=== PATIENT | male | born 1975 | race Caucasian/White ===

== ENCOUNTER 2023-05-22 06:46 | Emergency (ER) | payer MEDICAID ==
[~2023-05-22] VITALS: Ht 170.2 cm; Wt 84.6 kg
[2023-05-22 07:06] VITALS: O2SAT 100
[2023-05-22] MEDS ORDERED: ACYC200C31 MT (08:33)
[2023-05-22] MEDS ORDERED: P50 MT (08:33)
[2023-05-22 09:37] VITALS: BP 168/98; PULSE 93; RESP 15; TEMP 98
== END 2023-05-22 09:39 | disposition home or self-care (01) ==
LOC: ER 06:46
DX: R29.810 Facial weakness (principal)
CPT/HCPCS: 99283

== ENCOUNTER 2025-03-09 10:22 | Inpatient (IN) | payer MEDICAID ==
[~2025-03-09] VITALS: Ht 162.6 cm; Wt 73.9 kg
[~2025-03-09 10:22] MED LIST: ACYC-58 MT; P50 MT
[2025-03-09 11:07] VITALS: O2SAT 97
[2025-03-09] MEDS ORDERED: KETOROLAC 30MG/ML VIAL IM ONE (11:30)
[2025-03-09] MEDS ORDERED: LIDOCAINE 5% PATCH TOP SCH (11:30)
[2025-03-09 11:51] LABS: HEMATOCRIT. 38.8 % (42.0-52.0); HEMOGLOBIN. 13.0 g/dL (14.0-18.0); MEAN PLATELET VOLUME 8.3 fl (7.4-10.4); PLATELET 354 x1000/uL (130-400); RED BLOOD CELL COUNT 4.33 mill/uL (4.7-6.1); RED CELL DISTRIBUTION WIDTH 13.1 % (11.6-14.6)
[2025-03-09 12:03] LABS: CREATININE 0.8 mg/dL (0.6-1.3)
[2025-03-09 12:04] LABS: UREA NITROGEN BLOOD 7 mg/dL (9-23)
[2025-03-09 12:05] LABS: ASPARTATE AMINOTRANSFERASE 36 IU/L (<34)
[2025-03-09 12:06] LABS: BILIRUBIN DIRECT 0.2 mg/dL (<=3.0); BILIRUBIN TOTAL 0.4 mg/dL (0.1-1.0); PROTEIN TOTAL 8.6 g/dL (6.0-8.3)
[2025-03-09 12:56] LABS: TROPONIN I HIGH SENSITIVITY < 4 ng/L (3.0-53)
[2025-03-09] MEDS: SODIUM CHLORIDE 0.9% 1,000 ML IV ONE (13:07)
[2025-03-09 13:15] LABS: CLARITY URINE CLEAR (CLEAR); COLOR URINE YELLOW (YELLOW); GLUCOSE URINE 3+ (NEGATIVE); KETONES URINE NEGATIVE (NEGATIVE); LEUKOCYTE ESTERASE URINE 1+ (NEGATIVE); NITRITE URINE NEGATIVE (NEGATIVE); OCCULT BLOOD URINE 3+ (NEGATIVE); PH URINE 6.0 (4.5-8.0); PROTEIN URINE TRACE (NEGATIVE); SPECIFIC GRAVITY URINE 1.029 (1.005-1.030); UROBILINOGEN URINE 0.2 E.U./dL (0.2-1.0)
[2025-03-09 13:23] LABS: *AMPHETAMINES SCREEN URINE NEGATIVE (NEGATIVE)
[2025-03-09 13:24] LABS: *BARBITURATES SCREEN URINE NEGATIVE (NEGATIVE); *BENZODIAZEPINES SCREEN URINE NEGATIVE (NEGATIVE); *COCAINE SCREEN URINE NEGATIVE (NEGATIVE); CANNABINOID URINE SCREEN NEGATIVE (NEGATIVE); ECSTASY MDMA SCREEN URINE NEGATIVE (NEGATIVE); METHADONE URINE SCREEN NEGATIVE (NEGATIVE); OPIATES URINE SCREEN NEGATIVE (NEGATIVE); PHENCYCLIDINE URINE SCREEN NEGATIVE (NEGATIVE)
[2025-03-09 14:03] LABS: MUCUS URINE TRACE /lpf (NONE/TRACE)
[2025-03-09] MEDS: CEFTRIAXONE 2GM/50ML 50 ML IV ONE (14:03)
[2025-03-09 14:04] LABS: SQUAMOUS EPITHELIAL CELL URINE RARE /lpf (RARE/1+)
[2025-03-09] MEDS: SODIUM CHLORIDE 0.9% (SEPSIS BOLUS) IV ONE (14:04)
[2025-03-09 14:05] LABS: BACTERIA URINE TRACE; RBC URINE 50-100 /hpf (0-2); WBC URINE TNTC /hpf (0-2)
[2025-03-09] MEDS: KETOROLAC 30MG/ML VIAL IM NR (14:10)
[2025-03-09] MEDS ORDERED: INSULIN REGULAR (HUMULIN R) 1000UNITS/10ML VIAL IV NR (14:30)
[2025-03-09] MEDS ORDERED: GUAIFENESIN 200MG/10ML SUGAR FREE UDC PO PRN (15:00)
[2025-03-09] MEDS ORDERED: ONDANSETRON HCL 4MG/2ML INJ IV PRN (15:00)
[2025-03-09] MEDS ORDERED: IPRATROPIUM/ALBUTEROL 0.5-3(2.5)MG/3ML NEB HHN PRN (15:00)
[2025-03-09] MEDS ORDERED: CLONIDINE 0.1MG TABLET PO PRN (15:00)
[2025-03-09] MEDS ORDERED: DEXTROSE 50% WATER 50ML SYRINGE IV PRN (15:30)
[2025-03-09 16:00] VITALS: BP 145/88; PULSE 102; RESP 17; TEMP 36.9; O2SAT 97
[2025-03-09] MEDS: BLOOD SUGAR DIAGNOSTIC STRIP TEST SCH (16:33)
[2025-03-09] MEDS: LOSARTAN 25 MG TABLET PO SCH (16:53)
[2025-03-09] MEDS: INSULIN LISPRO 100 UNITS/ML SUBCUT SCH ×2 (16:54→16:55)
[2025-03-09 17:49] LABS: CREATININE 0.6 mg/dL (0.6-1.3); INR 1.1; UREA NITROGEN BLOOD 6 mg/dL (9-23)
[2025-03-09 17:50] LABS: TROPONIN I HIGH SENSITIVITY < 4 ng/L (3.0-53)
[2025-03-09 17:51] LABS: ASPARTATE AMINOTRANSFERASE 32 IU/L (<34); BILIRUBIN DIRECT 0.2 mg/dL (<=3.0); BILIRUBIN TOTAL 0.3 mg/dL (0.1-1.0); PROTEIN TOTAL 8.4 g/dL (6.0-8.3)
[2025-03-09 17:56] VITALS: BP 145/88; PULSE 102; RESP 17; TEMP 36.974
[2025-03-09] MEDS: ACETAMINOPHEN 325MG TABLET PO PRN (18:33)
[2025-03-09 19:30] LABS: BAND% 1.0 % (1.0-6.0); EOSINOPHILS % MANUAL 1.0 % (0.0-5.0); LYMPHOCYTES % MANUAL 9.0 % (20.0-50.0); MONOCYTES % MANUAL 6.0 % (2.0-8.0); NEUTROPHILS % MANUAL 83.0 % (45.0-75.0); PLATELET ESTIMATE NORMAL
[2025-03-09 20:00] VITALS: BP 136/84; PULSE 117; RESP 18; TEMP 37.9; O2SAT 96
[2025-03-09] MEDS: KETOROLAC 30MG/ML VIAL IV PRN (20:21)
[2025-03-09] MEDS: SODIUM CHLORIDE 0.9% 1,000 ML IV SCH (20:23)
[2025-03-09] MEDS: INSULIN GLARGINE 100 UNITS/ML SUBCUT SCH (21:30)
[2025-03-10] VITALS: BP 143/87; PULSE 110; RESP 18; TEMP 36.4; O2SAT 100
[2025-03-10 04:00] VITALS: BP 134/83; PULSE 104; RESP 17; TEMP 36.7; O2SAT 96
[2025-03-10 06:55] LABS: CREATINE KINASE MB FRACTION < 0.5 ng/mL (0.5-3.6)
[2025-03-10 06:59] LABS: BASOPHILS % 0.4 % (0.0-2.0); EOSINOPHILS % 0.2 % (0.0-5.0); HEMATOCRIT. 33.9 % (42.0-52.0); HEMOGLOBIN. 11.4 g/dL (14.0-18.0); LYMPHOCYTES % 7.3 % (20.0-50.0); MEAN PLATELET VOLUME 8.8 fl (7.4-10.4); MONOCYTES % 5.8 % (2.0-8.0); NEUTROPHILS % 86.3 % (40.0-76.0); PLATELET 306 x1000/uL (130-400); RED BLOOD CELL COUNT 3.75 mill/uL (4.7-6.1); RED CELL DISTRIBUTION WIDTH 13.0 % (11.6-14.6)
[2025-03-10 07:02] LABS: CREATININE 0.5 mg/dL (0.6-1.3); UREA NITROGEN BLOOD 6 mg/dL (9-23)
[2025-03-10 08:00] VITALS: BP 142/90; PULSE 114; RESP 18; TEMP 36.8; O2SAT 95
[2025-03-10 12:00] VITALS: BP 137/86; PULSE 104; RESP 18; TEMP 37.6; O2SAT 100
[2025-03-10] MEDS: CEFTRIAXONE 1GM/50ML 50 ML IV SCH (14:22)
[2025-03-10 16:00] VITALS: BP 139/87; PULSE 103; RESP 16; TEMP 36.6; O2SAT 98
[2025-03-10 20:00] VITALS: BP 142/93; PULSE 117; RESP 17; TEMP 38.3; O2SAT 95
[2025-03-10] MEDS: ACETAMINOPHEN 325MG TABLET PO PRN (20:26)
[2025-03-10 21:45] LABS: CREATININE 0.6 mg/dL (0.6-1.3)
[2025-03-10 21:46] LABS: UREA NITROGEN BLOOD 7 mg/dL (9-23)
[2025-03-11] VITALS: BP 127/79; PULSE 102; RESP 18; TEMP 36.6; O2SAT 95
[2025-03-11 04:00] VITALS: BP 134/86; PULSE 89; RESP 18; TEMP 36.2; O2SAT 96
[2025-03-11 08:00] VITALS: BP 136/90; PULSE 107; RESP 18; TEMP 36.4; O2SAT 95
[2025-03-11 11:22] LABS: HEMATOCRIT. 33.4 % (42.0-52.0); HEMOGLOBIN. 11.3 g/dL (14.0-18.0); MEAN PLATELET VOLUME 8.7 fl (7.4-10.4); PLATELET 272 x1000/uL (130-400); RED BLOOD CELL COUNT 3.68 mill/uL (4.7-6.1); RED CELL DISTRIBUTION WIDTH 13.0 % (11.6-14.6)
[2025-03-11 11:37] LABS: CREATININE 0.6 mg/dL (0.6-1.3); UREA NITROGEN BLOOD 10 mg/dL (9-23)
[2025-03-11 12:00] VITALS: BP 120/81; PULSE 97; RESP 18; TEMP 36.4; O2SAT 96
[2025-03-11 12:47] LABS: INR 1.1
[2025-03-11] MEDS: SODIUM CHLORIDE 0.9% 1,000 ML IV SCH (13:32)
[2025-03-11] MEDS: VANCOMYCIN 1.5GM PMX (XELLIA) 300 ML IV NR (13:33)
[2025-03-11 13:38] LABS: HEPATITIS A AB IGM NEGATIVE (Negative); HEPATITIS B CORE AB IGM NEGATIVE (Negative)
[2025-03-11 13:39] LABS: HEPATITIS C AB NON REACTIVE (Neg) (Negative)
[2025-03-11 15:49] LABS: BAND% 13.0 % (1.0-6.0); LYMPHOCYTES % MANUAL 4.0 % (20.0-50.0); MONOCYTES % MANUAL 10.0 % (2.0-8.0); NEUTROPHILS % MANUAL 73.0 % (45.0-75.0)
[2025-03-11 15:50] LABS: PLATELET ESTIMATE NORMAL
[2025-03-11] MEDS: PIPERACILLIN/TAZO 3.375G/50ML 50 ML IV SCH (15:58)
[2025-03-11 16:00] VITALS: BP 138/87; PULSE 101; RESP 18; TEMP 36.4; O2SAT 95
[2025-03-11 20:00] VITALS: BP 137/87; PULSE 95; RESP 20; TEMP 37.8; O2SAT 98
[2025-03-12] VITALS (15 sets, daily range): BP systolic 124–139; BP diastolic 82–92; PULSE 91–109; RESP 16–18; TEMP 36.9–37.3; O2SAT 95–100
[2025-03-12] MEDS: VANCOMYCIN 1.25GM/250ML 250 ML IV SCH (01:57)
[2025-03-12 06:17] LABS: BASOPHILS % 0.5 % (0.0-2.0); EOSINOPHILS % 0.6 % (0.0-5.0); HEMATOCRIT. 34.8 % (42.0-52.0); HEMOGLOBIN. 11.8 g/dL (14.0-18.0); LYMPHOCYTES % 9.6 % (20.0-50.0); MEAN PLATELET VOLUME 8.6 fl (7.4-10.4); MONOCYTES % 6.5 % (2.0-8.0); NEUTROPHILS % 82.8 % (40.0-76.0); PLATELET 324 x1000/uL (130-400); RED BLOOD CELL COUNT 3.87 mill/uL (4.7-6.1); RED CELL DISTRIBUTION WIDTH 12.7 % (11.6-14.6)
[2025-03-12 06:30] LABS: UREA NITROGEN BLOOD 9 mg/dL (9-23)
[2025-03-12 06:31] LABS: CREATININE 0.6 mg/dL (0.6-1.3)
[2025-03-12 06:33] LABS: ASPARTATE AMINOTRANSFERASE 65 IU/L (<34); BILIRUBIN DIRECT 0.2 mg/dL (<=3.0)
[2025-03-12 06:34] LABS: BILIRUBIN TOTAL 0.5 mg/dL (0.1-1.0); PHOSPHORUS 4.2 mg/dL (2.5-4.9); PROTEIN TOTAL 8.2 g/dL (6.0-8.3)
[2025-03-12] MEDS ORDERED: LIDOCAINE HCL 1% 10 MG/ML 10ML VIAL ONE (10:32)
[2025-03-12] MEDS ORDERED: FENTANYL CITRATE/PF 50MCG/ML 2ML VIAL ONE (10:32)
[2025-03-12] MEDS: FENTANYL CITRATE/PF 50MCG/ML 2ML VIAL IV ONE (10:40)
[2025-03-12 10:50] LABS: BASOPHILS % 0.7 % (0.0-2.0); EOSINOPHILS % 0.3 % (0.0-5.0); HEMATOCRIT. 36.0 % (42.0-52.0); HEMOGLOBIN. 12.2 g/dL (14.0-18.0); LYMPHOCYTES % 9.3 % (20.0-50.0); MEAN PLATELET VOLUME 8.5 fl (7.4-10.4); MONOCYTES % 5.6 % (2.0-8.0); NEUTROPHILS % 84.1 % (40.0-76.0); PLATELET 359 x1000/uL (130-400); RED BLOOD CELL COUNT 4.03 mill/uL (4.7-6.1); RED CELL DISTRIBUTION WIDTH 12.9 % (11.6-14.6)
[2025-03-12 11:08] LABS: CREATININE 0.6 mg/dL (0.6-1.3); TROPONIN I HIGH SENSITIVITY < 4 ng/L (3.0-53); UREA NITROGEN BLOOD 9 mg/dL (9-23)
[2025-03-12] MEDS: INSULIN LISPRO 100 UNITS/ML SUBCUT NR (14:53)
[2025-03-12] MEDS: INSULIN LISPRO 100 UNITS/ML SUBCUT SCH (17:30)
[2025-03-12] MEDS: INSULIN GLARGINE 100 UNITS/ML SUBCUT SCH (22:11)
[2025-03-13] VITALS: BP 119/78; PULSE 91; RESP 18; TEMP 37.2; O2SAT 98
[2025-03-13 04:00] VITALS: BP 122/69; PULSE 97; RESP 18; TEMP 36.7; O2SAT 98
[2025-03-13 07:23] LABS: PLATELET 344 x1000/uL (130-400); RED BLOOD CELL COUNT 4.02 mill/uL (4.7-6.1); RED CELL DISTRIBUTION WIDTH 13.1 % (11.6-14.6)
[2025-03-13 07:30] LABS: CREATININE 0.6 mg/dL (0.6-1.3)
[2025-03-13 07:32] LABS: UREA NITROGEN BLOOD 10 mg/dL (9-23)
[2025-03-13 08:00] VITALS: BP 123/75; PULSE 103; RESP 16; TEMP 36.5; O2SAT 95
[2025-03-13 12:00] VITALS: BP 118/78; PULSE 89; RESP 18; TEMP 36.6; O2SAT 96
[2025-03-13 16:00] VITALS: BP 125/82; PULSE 91; RESP 18; TEMP 36.4; O2SAT 95
[2025-03-13 20:00] VITALS: BP 121/78; PULSE 95; RESP 16; TEMP 36.9; O2SAT 95
[2025-03-14] VITALS: BP 124/72; PULSE 100; RESP 17; TEMP 36.7; O2SAT 93
[2025-03-14 04:00] VITALS: BP 125/84; PULSE 86; RESP 19; TEMP 36.4; O2SAT 96
[2025-03-14 07:47] LABS: CREATININE 0.6 mg/dL (0.6-1.3); UREA NITROGEN BLOOD 8 mg/dL (9-23)
[2025-03-14 07:49] LABS: PHOSPHORUS 3.4 mg/dL (2.5-4.9)
[2025-03-14 07:51] LABS: BASOPHILS % 0.6 % (0.0-2.0); EOSINOPHILS % 0.9 % (0.0-5.0); HEMATOCRIT. 35.4 % (42.0-52.0); HEMOGLOBIN. 12.1 g/dL (14.0-18.0); LYMPHOCYTES % 17.7 % (20.0-50.0); MEAN PLATELET VOLUME 8.7 fl (7.4-10.4); MONOCYTES % 7.7 % (2.0-8.0); NEUTROPHILS % 73.1 % (40.0-76.0); PLATELET 321 x1000/uL (130-400); RED BLOOD CELL COUNT 3.97 mill/uL (4.7-6.1); RED CELL DISTRIBUTION WIDTH 13.0 % (11.6-14.6)
[2025-03-14 08:00] VITALS: BP 121/74; PULSE 96; RESP 18; TEMP 37.2; O2SAT 96
[2025-03-14] MEDS: MAGNESIUM 2 G PREMIX 50 ML IV NR (09:44)
[2025-03-14 18:32] VITALS: BP 127/78; PULSE 99; RESP 16; TEMP 37.1; O2SAT 96
[2025-03-14 20:00] VITALS: BP 118/80; PULSE 98; RESP 18; TEMP 36.1; O2SAT 100
[2025-03-15] VITALS (32 sets, daily range): BP systolic 102–124; BP diastolic 65–87; PULSE 95–115; RESP 8–22; TEMP 35.9–37; O2SAT 94–100
[2025-03-15] MEDS: INSULIN LISPRO 100 UNITS/ML SUBCUT SCH (06:44)
[2025-03-15 08:10] LABS: BASOPHILS % 1.3 % (0.0-2.0); EOSINOPHILS % 1.2 % (0.0-5.0); HEMATOCRIT. 34.9 % (42.0-52.0); HEMOGLOBIN. 11.8 g/dL (14.0-18.0); LYMPHOCYTES % 16.1 % (20.0-50.0); MEAN PLATELET VOLUME 8.6 fl (7.4-10.4); MONOCYTES % 6.7 % (2.0-8.0); NEUTROPHILS % 74.7 % (40.0-76.0); PLATELET 352 x1000/uL (130-400); RED BLOOD CELL COUNT 3.91 mill/uL (4.7-6.1); RED CELL DISTRIBUTION WIDTH 12.9 % (11.6-14.6)
[2025-03-15 08:17] LABS: CREATININE 0.5 mg/dL (0.6-1.3)
[2025-03-15 08:18] LABS: UREA NITROGEN BLOOD 8 mg/dL (9-23)
[2025-03-15] MEDS ORDERED: LIDOCAINE HCL/EPINEPHRINE 1%-EPI 1:100,000 20ML VIAL ONE (12:13)
[2025-03-15] MEDS ORDERED: GENTAMICIN SULF 40MG/ML 2ML VIAL ONE (12:13)
[2025-03-15] MEDS ORDERED: THROMBIN (BOVINE) 5000 UNITS/VIAL TOP ONE (12:13)
[2025-03-15] MEDS ORDERED: PROPOFOL 200MG/20ML VIAL IV ONE (14:30)
[2025-03-15] MEDS ORDERED: FENTANYL CITRATE/PF 50MCG/ML 2ML VIAL ONE (14:30)
[2025-03-15] MEDS ORDERED: CEFAZOLIN SODIUM 1000MG/VIAL ONE (14:30)
[2025-03-15] MEDS ORDERED: SUCCINYLCHOLINE CHLORIDE 200MG/10ML IV ONE (14:30)
[2025-03-15] MEDS: DEXT 5%/LACTATED RINGERS 1,000 ML IV SCH (14:30)
[2025-03-15] MEDS ORDERED: DEXAMETHASONE 4MG/ML 1ML VIAL ONE (14:30)
[2025-03-15] MEDS ORDERED: ONDANSETRON HCL 4MG/2ML INJ ONE (14:30)
[2025-03-15] MEDS ORDERED: MIDAZOLAM HCL 2 MG/2 ML VIAL ONE (14:31)
[2025-03-15] MEDS ORDERED: NALOXONE HCL 0.4MG/ML VIAL IV PRN (14:45)
[2025-03-15] MEDS ORDERED: ROCURONIUM BROMIDE 10MG/ML VIAL 5ML IV ONE ×2 (14:46→14:49)
[2025-03-15] MEDS ORDERED: HYDROMORPHONE HCL/PF 2MG/ML INJ ONE ×2 (14:58→16:18)
[2025-03-15] MEDS ORDERED: HYDRALAZINE 20MG/ML VIAL ONE (16:18)
[2025-03-15] MEDS: NICARDIPINE 100 MG in SODIUM CHLORIDE 0.9% 60 ML IV PRN (17:37)
[2025-03-16] VITALS (35 sets, daily range): BP systolic 105–124; BP diastolic 65–105; PULSE 99–114; RESP 10–26; TEMP 36.7–37.2; O2SAT 96–98
[2025-03-16] MEDS: MORPHINE SULFATE 4 MG/ML INJ (FOR IV/IM USE) IV PRN ×2 (02:56→17:05)
[2025-03-16 05:46] LABS: BASOPHILS % 0.5 % (0.0-2.0); EOSINOPHILS % 0.0 % (0.0-5.0); HEMATOCRIT. 30.6 % (42.0-52.0); HEMOGLOBIN. 10.2 g/dL (14.0-18.0); LYMPHOCYTES % 11.3 % (20.0-50.0); MEAN PLATELET VOLUME 8.9 fl (7.4-10.4); MONOCYTES % 5.9 % (2.0-8.0); NEUTROPHILS % 82.3 % (40.0-76.0); PLATELET 322 x1000/uL (130-400); RED BLOOD CELL COUNT 3.43 mill/uL (4.7-6.1); RED CELL DISTRIBUTION WIDTH 12.8 % (11.6-14.6)
[2025-03-16 05:59] LABS: CREATININE 0.6 mg/dL (0.6-1.3); UREA NITROGEN BLOOD 9 mg/dL (9-23)
[2025-03-16] MEDS ORDERED: HYDROCODONE/ACETAMINOPHEN 5/325MG TABLET PO PRN (13:45)
[2025-03-17] VITALS: BP 118/72; PULSE 105; RESP 24; TEMP 36.7; O2SAT 98
[2025-03-17 04:00] VITALS: BP 126/77; PULSE 92; RESP 22; TEMP 36.7; O2SAT 97
[2025-03-17 06:50] LABS: BASOPHILS % 0.8 % (0.0-2.0); EOSINOPHILS % 0.6 % (0.0-5.0); HEMATOCRIT. 31.9 % (42.0-52.0); HEMOGLOBIN. 10.9 g/dL (14.0-18.0); LYMPHOCYTES % 19.1 % (20.0-50.0); MEAN PLATELET VOLUME 8.7 fl (7.4-10.4); MONOCYTES % 8.2 % (2.0-8.0); NEUTROPHILS % 71.3 % (40.0-76.0); PLATELET 296 x1000/uL (130-400); RED BLOOD CELL COUNT 3.58 mill/uL (4.7-6.1); RED CELL DISTRIBUTION WIDTH 12.9 % (11.6-14.6)
[2025-03-17 07:45] LABS: CREATININE 0.6 mg/dL (0.6-1.3); UREA NITROGEN BLOOD 7 mg/dL (9-23)
[2025-03-17 07:47] LABS: PHOSPHORUS 2.9 mg/dL (2.5-4.9)
[2025-03-17 08:41] VITALS: BP 118/72; PULSE 98; RESP 17; TEMP 36.7; O2SAT 97
[2025-03-17 11:38] VITALS: BP 110/76; PULSE 107; RESP 17; TEMP 36.2; O2SAT 97
[2025-03-17] MEDS: HYDROCODONE/ACETAMINOPHEN 10/325MG TABLET PO PRN (15:17)
[2025-03-17 15:18] VITALS: BP 113/71; PULSE 100; RESP 18; TEMP 36.4; O2SAT 99
[2025-03-17] MEDS: MAGNESIUM 2 G PREMIX 50 ML IV NR (15:18)
[2025-03-17 20:00] VITALS: BP 110/74; PULSE 100; RESP 18; TEMP 36.3; O2SAT 98
[2025-03-17] MEDS: DOCUSATE SODIUM 100MG CAPSULE PO PRN (23:21)
[2025-03-18] VITALS: BP 116/70; PULSE 98; RESP 18; TEMP 36.3; O2SAT 98
[2025-03-18 04:00] VITALS: BP 114/71; PULSE 98; RESP 18; TEMP 36.2; O2SAT 98
[2025-03-18 08:00] VITALS: BP 118/78; PULSE 95; RESP 18; TEMP 36.5; O2SAT 98
[2025-03-18 09:11] LABS: CREATININE 0.6 mg/dL (0.6-1.3)
[2025-03-18] MEDS ORDERED: LIDOCAINE HCL 1% 10 MG/ML 10ML VIAL ONE (09:12)
[2025-03-18 09:13] LABS: UREA NITROGEN BLOOD 6 mg/dL (9-23)
[2025-03-18 09:15] LABS: PHOSPHORUS 3.4 mg/dL (2.5-4.9)
[2025-03-18 09:19] LABS: BASOPHILS % 0.6 % (0.0-2.0); EOSINOPHILS % 0.8 % (0.0-5.0); HEMATOCRIT. 30.9 % (42.0-52.0); HEMOGLOBIN. 10.2 g/dL (14.0-18.0); LYMPHOCYTES % 18.1 % (20.0-50.0); MEAN PLATELET VOLUME 8.7 fl (7.4-10.4); MONOCYTES % 8.7 % (2.0-8.0); NEUTROPHILS % 71.8 % (40.0-76.0); PLATELET 263 x1000/uL (130-400); RED BLOOD CELL COUNT 3.40 mill/uL (4.7-6.1); RED CELL DISTRIBUTION WIDTH 13.0 % (11.6-14.6)
[2025-03-18] MEDS: MAGNESIUM 2 G PREMIX 50 ML IV SCH (09:48)
[2025-03-18] MEDS: MAGNESIUM OXIDE 400MG TABLET PO SCH (09:48)
[2025-03-18] MEDS ORDERED: IOHEXOL-300 100 ML BOTTLE ONE (12:55)
[2025-03-18 16:00] VITALS: BP 115/71; PULSE 90; RESP 20; TEMP 36.6; O2SAT 99
[2025-03-18 20:00] VITALS: BP 127/81; PULSE 108; RESP 20; TEMP 37.3; O2SAT 96
[2025-03-19] VITALS (7 sets, daily range): BP systolic 112–120; BP diastolic 69–80; PULSE 85–222; RESP 18–20; TEMP 36.4–37.8; O2SAT 95–99
[2025-03-19 08:03] LABS: BASOPHILS % 0.7 % (0.0-2.0); EOSINOPHILS % 0.6 % (0.0-5.0); HEMATOCRIT. 31.7 % (42.0-52.0); HEMOGLOBIN. 10.9 g/dL (14.0-18.0); LYMPHOCYTES % 13.6 % (20.0-50.0); MEAN PLATELET VOLUME 8.6 fl (7.4-10.4); MONOCYTES % 8.7 % (2.0-8.0); NEUTROPHILS % 76.4 % (40.0-76.0); PLATELET 301 x1000/uL (130-400); RED BLOOD CELL COUNT 3.56 mill/uL (4.7-6.1); RED CELL DISTRIBUTION WIDTH 12.9 % (11.6-14.6)
[2025-03-19 08:27] LABS: CREATININE 0.5 mg/dL (0.6-1.3); UREA NITROGEN BLOOD 6 mg/dL (9-23)
[2025-03-19 08:29] LABS: PHOSPHORUS 3.4 mg/dL (2.5-4.9)
[2025-03-19] MEDS: MAGNESIUM 2 G PREMIX 50 ML IV SCH (12:02)
[2025-03-19] MEDS: INSULIN GLARGINE 100 UNITS/ML SUBCUT SCH (21:24)
[2025-03-20 06:25] LABS: BASOPHILS % 0.7 % (0.0-2.0); EOSINOPHILS % 1.7 % (0.0-5.0); HEMATOCRIT. 32.6 % (42.0-52.0); HEMOGLOBIN. 10.9 g/dL (14.0-18.0); LYMPHOCYTES % 17.0 % (20.0-50.0); MEAN PLATELET VOLUME 8.7 fl (7.4-10.4); MONOCYTES % 7.0 % (2.0-8.0); NEUTROPHILS % 73.6 % (40.0-76.0); PLATELET 296 x1000/uL (130-400); RED BLOOD CELL COUNT 3.67 mill/uL (4.7-6.1); RED CELL DISTRIBUTION WIDTH 13.0 % (11.6-14.6)
[2025-03-20 06:38] LABS: CREATININE 0.5 mg/dL (0.6-1.3)
[2025-03-20 06:39] LABS: UREA NITROGEN BLOOD 7 mg/dL (9-23)
[2025-03-20 08:00] VITALS: BP 110/75; PULSE 111; RESP 16; TEMP 36.7; O2SAT 94
[2025-03-20 12:00] VITALS: BP 115/70; PULSE 101; RESP 18; TEMP 36.7; O2SAT 95
[2025-03-20 16:00] VITALS: BP 110/70; PULSE 95; RESP 16; TEMP 36.4; O2SAT 98
[2025-03-20 20:00] VITALS: BP 109/84; PULSE 104; RESP 18; TEMP 36.6; O2SAT 98
[2025-03-21] VITALS: BP 112/84; PULSE 96; RESP 18; TEMP 36.6; O2SAT 98
[2025-03-21 04:00] VITALS: BP 112/72; PULSE 95; RESP 20; TEMP 36.4; O2SAT 100
[2025-03-21 08:00] VITALS: BP 115/75; PULSE 108; RESP 20; TEMP 36.8; O2SAT 97
[2025-03-21 12:00] VITALS: BP 110/77; PULSE 95; RESP 18; TEMP 36.6; O2SAT 95
[2025-03-21 16:00] VITALS: BP 103/65; PULSE 95; RESP 18; TEMP 36.6; O2SAT 97
[2025-03-21 20:19] VITALS: BP 110/66; PULSE 105; RESP 18; TEMP 36.6; O2SAT 95
[2025-03-22] VITALS: BP 108/71; PULSE 107; RESP 18; TEMP 36.4; O2SAT 96
[2025-03-22 04:00] VITALS: BP 112/75; PULSE 107; RESP 20; TEMP 36.4; O2SAT 97
[2025-03-22 08:00] VITALS: BP 112/75; PULSE 103; RESP 20; TEMP 36.4; O2SAT 95
[2025-03-22 12:00] VITALS: BP 108/70; PULSE 103; RESP 18; TEMP 36.4; O2SAT 98
[2025-03-22 16:00] VITALS: BP 110/74; PULSE 90; RESP 18; TEMP 36.6
[2025-03-22] MEDS: HYDROCODONE/ACETAMINOPHEN 10/325MG TABLET PO PRN (18:57)
[2025-03-22 20:00] VITALS: BP 107/76; PULSE 99; RESP 20; TEMP 37.4; O2SAT 98
[2025-03-23] VITALS (7 sets, daily range): BP systolic 108–141; BP diastolic 61–86; PULSE 78–110; RESP 17–19; TEMP 35.9–37; O2SAT 96–100
[2025-03-24] VITALS: BP 112/72; PULSE 100; RESP 20; TEMP 36.8; O2SAT 99
[2025-03-24 04:00] VITALS: BP 101/72; PULSE 92; RESP 18; TEMP 36.7; O2SAT 98
[2025-03-24 06:07] LABS: PLATELET 274 x1000/uL (130-400); RED BLOOD CELL COUNT 3.46 mill/uL (4.7-6.1); RED CELL DISTRIBUTION WIDTH 13.1 % (11.6-14.6)
[2025-03-24 06:11] LABS: CREATININE 0.5 mg/dL (0.6-1.3)
[2025-03-24 06:12] LABS: UREA NITROGEN BLOOD 6 mg/dL (9-23)
[2025-03-24 06:14] LABS: PHOSPHORUS 3.7 mg/dL (2.5-4.9)
[2025-03-24 20:00] VITALS: BP 123/82; PULSE 107; RESP 18; TEMP 37.7; O2SAT 96
[2025-03-25] VITALS: BP 110/71; PULSE 100; RESP 18; TEMP 37.1; O2SAT 96
[2025-03-25 08:00] VITALS: BP 105/72; PULSE 98; RESP 18; TEMP 36.6; O2SAT 99
[2025-03-25 12:00] VITALS: BP 112/73; PULSE 91; RESP 18; TEMP 36.7; O2SAT 98
[2025-03-25 16:00] VITALS: BP 115/70; PULSE 89; RESP 18; O2SAT 98
[2025-03-25 20:00] VITALS: BP 118/73; PULSE 86; RESP 18; TEMP 36.6
[2025-03-26] VITALS: BP 115/73; RESP 18; TEMP 36.2
[2025-03-26 04:00] VITALS: BP 119/76; PULSE 83; RESP 20; TEMP 36.1
[2025-03-26 08:00] VITALS: BP 129/84; PULSE 90; RESP 18; TEMP 36.7
[2025-03-26 12:00] VITALS: BP 127/86; PULSE 88; RESP 18; TEMP 36.6
[2025-03-26 16:00] VITALS: BP 120/85; PULSE 95; RESP 18; TEMP 36.8
[2025-03-26 20:00] VITALS: BP 116/74; PULSE 100; RESP 19; TEMP 36.7
[2025-03-27] VITALS: BP 111/75; PULSE 96; RESP 18; TEMP 36.6
[2025-03-27 04:00] VITALS: BP 114/76; PULSE 93; RESP 19; TEMP 36.5
[2025-03-27 08:00] VITALS: BP 115/79; PULSE 88; RESP 16; TEMP 36.1; O2SAT 97
[2025-03-27 12:00] VITALS: BP 105/65; PULSE 91; RESP 17; TEMP 36.2; O2SAT 97
[2025-03-27 16:00] VITALS: BP 107/64; PULSE 92; RESP 18; TEMP 36.3; O2SAT 98
[2025-03-27 20:00] VITALS: BP 103/60; PULSE 55; RESP 15; TEMP 36.6; O2SAT 98
[2025-03-28] VITALS: BP 104/65; PULSE 94; RESP 16; TEMP 36.3; O2SAT 95
[2025-03-28 04:00] VITALS: BP 135/89; PULSE 104; RESP 16; TEMP 36.9; O2SAT 93
[2025-03-28 08:00] VITALS: BP 119/80; PULSE 103; RESP 18; TEMP 36.5; O2SAT 97
[2025-03-28 12:00] VITALS: BP 118/81; PULSE 95; RESP 18; TEMP 36.5; O2SAT 96
[2025-03-28 16:00] VITALS: BP 113/77; PULSE 97; RESP 16; TEMP 36.6; O2SAT 97
[2025-03-29] VITALS: BP 116/70; PULSE 95; RESP 18; TEMP 37.1; O2SAT 96
[2025-03-29 04:00] VITALS: BP 118/83; PULSE 99; RESP 18; TEMP 36.7; O2SAT 100
[2025-03-29 08:00] VITALS: BP 122/84; PULSE 97; RESP 16; TEMP 36.6; O2SAT 97
[2025-03-29 16:00] VITALS: BP 120/87; PULSE 98; RESP 16; TEMP 36.5; O2SAT 99
[2025-03-29 20:00] VITALS: BP 121/83; PULSE 109; RESP 16; TEMP 36.7; O2SAT 99
[2025-03-30] VITALS (7 sets, daily range): BP systolic 106–130; BP diastolic 63–85; PULSE 91–105; RESP 14–19; TEMP 36.2–37.4; O2SAT 96–98
[2025-03-31 04:00] VITALS: BP 103/75; PULSE 94; RESP 18; TEMP 36.7; O2SAT 98
[2025-03-31 08:00] VITALS: BP 127/91; PULSE 99; RESP 18; TEMP 36; O2SAT 98
[2025-03-31 12:00] VITALS: BP 124/79; PULSE 97; RESP 18; TEMP 36.8; O2SAT 98
[2025-03-31] MEDS ORDERED: INSLIS SUBCUT (14:38)
[2025-03-31] MEDS ORDERED: LOSA25TA26 PO (14:38)
[2025-03-31] MEDS ORDERED: LANTUSUD SUBCUT (14:38)
[2025-03-31] MEDS ORDERED: CEFT2FRO5 IV (14:38)
[2025-03-31 15:27] VITALS: BP 124/79; PULSE 97; RESP 18; TEMP 98.2
== END 2025-03-31 16:30 | disposition home health service (06) | DRG 710 ==
LOC: ER 10:22 → 5WST 13:52 → EDBEDREQ 14:02 → EDBEDREQTM 14:02 → ENRESERV 14:37 → MICUNO 03-15 17:09 → 7WST 03-16 11:30 → 7EST 03-23 01:22
PROVIDERS: ADMIT Student in an Organized Health Care Education/Training Program; ATTEND Student in an Organized Health Care Education/Training Program
PROC: 0K9N3ZZ Drainage of Right Hip Muscle, Percutaneous Approach (ICD-10-PCS; 2025-03-12)
PROC: 009U0ZZ Drainage of Spinal Canal, Open Approach (ICD-10-PCS; principal; 2025-03-15)
PROC: 00NY0ZZ Release Lumbar Spinal Cord, Open Approach (ICD-10-PCS; 2025-03-15)
PROC: 01NB0ZZ Release Lumbar Nerve, Open Approach (ICD-10-PCS; 2025-03-15)
PROC: 02HV33Z Insertion of Infusion Device into Superior Vena Cava, Percutaneous Approach (ICD-10-PCS; 2025-03-18)
PROC: B548ZZA Ultrasonography of Superior Vena Cava, Guidance (ICD-10-PCS; 2025-03-18)
DX: A41.01 Sepsis due to Methicillin susceptible Staphylococcus aureus (principal); G06.1 Intraspinal abscess and granuloma; K68.12 Psoas muscle abscess; N15.1 Renal and perinephric abscess; M46.26 Osteomyelitis of vertebra, lumbar region; K74.60 Unspecified cirrhosis of liver; K76.6 Portal hypertension; D64.9 Anemia, unspecified; E87.1 Hypo-osmolality and hyponatremia; E11.649 Type 2 diabetes mellitus with hypoglycemia without coma; N12 Tubulo-interstitial nephritis, not specified as acute or chronic; N10 Acute pyelonephritis; I10 Essential (primary) hypertension; F10.10 Alcohol abuse, uncomplicated; G82.20 Paraplegia, unspecified; E11.65 Type 2 diabetes mellitus with hyperglycemia; M54.40 Lumbago with sciatica, unspecified side; R80.9 Proteinuria, unspecified; M48.061 Spinal stenosis, lumbar region without neurogenic claudication; E87.8 Other disorders of electrolyte and fluid balance, not elsewhere classified; E78.5 Hyperlipidemia, unspecified; Z82.49 Family history of ischemic heart disease and other diseases of the circulatory system; Z79.4 Long term (current) use of insulin; Z91.148 Patient's other noncompliance with medication regimen for other reason; Z79.84 Long term (current) use of oral hypoglycemic drugs; Z86.61 Personal history of infections of the central nervous system; Z79.899 Other long term (current) drug therapy
CPT/HCPCS: 36415; 71045; 72100; 72131; 72141; 72146; 72148; 74176; 74177; 76000; 76770; 77001; 77012; 80048; 80076; 80202; 80305; 80320; 81003; 82533; 82553; 82962; 83036; 83605; 83735; 83935; 84100; 84145; 84443; 84484; 85025; 85027; 86705; 86709; 87070; 87075; 87077; 87186; 87340; 88304; 88311; 93005; 93306; 93970; 95925; 95926; 95928; 95929; 97110; 97116; 97162; 97166; 97530; 97535; 99152; 99153; 99291; A4606; C1725; J0330; J0360; J0690; J0696; J1100; J1171; J1580; J1815; J1885; J2003; J2004; J2250; J2270; J2405; J2543; J2704; J3010; J3373; J3475; J3490; J7030; J7121; Q9967; G0480; G0500